=== PATIENT | female | born 1970 | race Caucasian/White ===

== ENCOUNTER 2017-03-28 20:58 | Emergency (ER) | payer BC ==
[2017-03-28 21:09] VITALS: BP 102/60
[2017-03-28] MEDS ORDERED: Penicillin VK LIQ* 250 MG/5 ML BTL PO ONE ×2 (21:43→21:47)
[2017-03-28] MEDS ORDERED: Penicillin VK TAB* 250 MG PO ONE (21:48)
--- NOTE | 2017-03-28 21:58 | UC ---
Throat Pain/Nasal Kota HPI - HPI Summary HPI Summary: pt preesents with c/o sudden onset of sore throat and NEWBERRY. that began today at 3 pm - History of Current Complaint Chief Complaint: UCGeneralIllness Stated Complaint: sore throat Time Seen by Provider: 03/28/17 21:04 Hx Obtained From: Patient Hx Last Menstrual Period: 2 wks ago ?: No Onset/Duration: Sudden Onset, Lasting Hours Severity: Mild Associated Signs & Symptoms: Positive: Dysphagia - Epiglottits Risk Factors Epiglottis Risk Factors: Sudden Onset - Allergies/Home Medications Allergies/Adverse Reactions: Allergies Allergy/AdvReac Type Severity Reaction Status Date / Time Codeine Allergy Severe Difficulty Verified 03/28/17 21:06 Breathing Home Medications: Home Medications Norethindr/Eth Estradiol(Nf) [Lo Loestrin Fe (NF)] 1 tab PO DAILY 03/28/17 [ History Confirmed 03/28/17] PMH/Surg Hx/FS Hx/Imm Hx Previously Healthy: Yes - Surgical History Surgical History: None - Family History Known Family History: Positive: Respiratory Disease - father - Social History Occupation: Employed Part-time Lives: With Family Alcohol Use: None Substance Use Type: None Smoking Status (MU): Never Smoked Tobacco Review of Systems Constitutional: Chills Skin: Negative Eyes: Negative ENT: Sore Throat Respiratory: Negative Cardiovascular: Negative Gastrointestinal: Negative Genitourinary: Negative Motor: Negative Neurovascular: Negative Musculoskeletal: Negative Neurological: Headache Psychological: Negative All Other Systems Reviewed And Are Negative: Yes Physical Exam Triage Information Reviewed: Yes Appearance: Well-Appearing Vital Signs: Initial Vital Signs Temp 99.7 F 03/28/17 21:05 Pulse 72 03/28/17 21:05 Resp 16 03/28/17 21:05 BP 102/60 03/28/17 21:05 Pulse Ox 100 03/28/17 21:05 Eye Exam: Normal ENT Exam: Other ENT: Positive: Pharyngeal erythema Neck exam: Normal Respiratory Exam: Normal Cardiovascular Exam: Normal Musculoskeletal Exam: Normal Neurological Exam: Normal Psychological Exam: Normal Skin Exam: Normal Throat Pain/Nasal Course/Dx - Differential Dx/Diagnosis Differential Diagnosis/HQI/PQRI: Pharyngitis, URI Provider Diagnoses: Strep throat Discharge - Discharge Plan Condition: Stable Disposition: HOME Prescriptions: Penicillin VK TAB 500 MG(NF) [Penicillin VK 500 mg Tab(NF)] 500 mg PO Q8H #30 tab Patient Education Materials: Strep Throat (ED) Referrals: [facility] [Outside]
== END 2017-03-28 21:57 | disposition home or self-care (01) ==
LOC: UCCORT 20:58
DX: J02.0 Streptococcal pharyngitis (principal); Z88.5 Allergy status to narcotic agent
CPT/HCPCS: 87651; 99202; A9270-GY; G0463

== ENCOUNTER 2018-02-06 10:21 | Emergency (ER) | payer BC ==
[2018-02-06 11:12] LABS: ABS Basophils 0 10^3/ul (0-0.2); ABS Eosinophils 0.1 10^3/ul (0-0.6); ABS Lymphocytes 1.2 10^3/ul (1.0-4.8); ABS Monocytes 0.4 10^3/ul (0-0.8); ABS Nucleated RBC 0 10^3/ul; Hematocrit 41 % (35-47); Hemoglobin 13.9 g/dl (12.0-16.0); Lymphocyte % 17.5 % (25-47); Mean Corpuscular HGB Conc 34 g/dl (31-36); Mean Corpuscular Hemoglobin 30 pg (27-31); Mean Corpuscular Volume 87 fL (80-97); Mean Platelet Volume 6.8 um3 (7.4-10.4); Nucleated Red Blood Cells % 0.1; Platelet Count 264 10^3/ul (150-450); Red Blood Count 4.66 10^6/ul (4.0-5.4); Red Cell Distribution Width 13 % (10.5-15); White Blood Count 6.7 10^3/ul (3.5-10.8)
[2018-02-06 11:23] LABS: INR 1.58 (0.77-1.02)
[2018-02-06] MEDS ORDERED: Iohexol 350* (CONTRAST) 500 ML MDV IV ONE (12:39)
--- NOTE | 2018-02-06 13:43 | RAD ---
INDICATION: Pain in the antecubital area and fingers tingling. History of DVT. COMPARISON: February 04, 2018 TECHNIQUE: Duplex ultrasound of the LEFT internal jugular, subclavian, axillary, brachial, radial, ulnar, basilic, and cephalic veins. With the exception of the non accessible subclavian vein compressibility of venous segments assessed. Augmentation and phasicity assessed throughout. REPORT: The deep LEFT internal jugular, subclavian and axial veins are patent. One of the paired brachial veins demonstrates occlusive thrombosis proximally and recanalization distally. Patent radial and ulnar veins. Diffuse occlusive thrombosis of the cephalic vein. The basilic vein demonstrates thick montoya most consistent with nonocclusive partial chronic thrombosis. Patency of the RIGHT internal jugular and cephalic veins documented. IMPRESSION: 1. Occlusive DVT involving the proximal segment of the paired brachial veins with distal recanalization similar to the prior exam. 2. Diffuse occlusive thrombophlebitis of the cephalic vein with interval worsening. 3. 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
[2018-02-06] MEDS ORDERED: NS 0.9% 1000 ML* 1,000 ML IV ONE (14:10)
--- NOTE | 2018-02-06 14:12 | RAD ---
INDICATION: Chest pain no upper extremity deep venous thrombosis. COMPARISON: There are no prior studies available for comparison. TECHNIQUE: A CT angiogram of the chest was performed with intravenous following intravenous injection of 61 ml of Omnipaque 350 nonionic contrast. Contiguous axial sections were obtained from the lung apices through the lung bases. Images were reconstructed in the coronal and sagittal planes. FINDINGS: There is relatively homogeneous opacification of the pulmonary arteries. No intraluminal filling defect or pulmonary embolism is seen. The heart is within normal limits in size. No pericardial effusion is present. The thoracic aorta is normal in caliber and demonstrates homogeneous contrast opacification. No significant enlarged mediastinal or hilar lymph nodes are seen. There is bilateral apical pleural and parenchymal scarring. The lungs are otherwise clear. No pleural effusion is seen. No significant focal osseous abnormality is seen. IMPRESSION: NO EVIDENCE FOR PULMONARY EMBOLISM.
--- NOTE | 2018-02-06 15:43 | RAD ---
HISTORY: Lumbar pressure after spinal tap COMPARISONS: None TECHNIQUE: The following sequences were obtained of the lumbar spine: Sagittal and axial T1- and T2-weighted images, coronal T2-weighted images, and sagittal STIR images. FINDINGS: SPINAL CORD, CONUS, AND CAUDA EQUINA: The visualized spinal cord, conus, and cauda equina are normal in caliber, position, and signal intensity. There is no epidural fluid collection to suggest epidural hematoma. ALIGNMENT: The alignment is normal. VERTEBRAL BODIES: There is a hemangioma of T11. JOINTS: There is no subluxation or dislocation. MUSCULATURE: There is mild fatty infiltration. INTERVERTEBRAL DISCS: There is loss of intervertebral disc at and T2 signal at L3-L4, L4-L5, and L5-S1. AXIAL IMAGES: L3-L4: There is no disc herniation, spinal stenosis, or neuroforaminal narrowing. L4-L5: There is mild disc bulge. There is an annular fissure extending along the right neural foramen. There is a broad-based left foraminal disc protrusion measuring 0.3 cm in depth. There is mild right neuroforaminal narrowing. There is no significant central stenosis. L5-S1: There is a mild disc bulge there is no significant neural foraminal narrowing or central canal stenosis. SOFT TISSUES: The visualized soft tissues of the abdomen are unremarkable. 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 IMPRESSION: 1. THERE IS NO EPIDURAL FLUID COLLECTION TO SUGGEST EPIDURAL HEMATOMA. 2. MILD DEGENERATIVE DISC DISEASE ALONG THE LOWER LUMBAR SPINE. THERE IS A LEFT-SIDED DISC PROTRUSION, WITH A RIGHT-SIDED ANNULAR FISSURE, AT L4-L5. THERE IS MILD RIGHT NEURAL FORAMINAL NARROWING AT L4-L5. 3. SACRAL TARLOV CYSTS
--- NOTE | 2018-02-06 16:43 | ED ---
Edwige Stewart Thomas scribed for John Burgess MD on 02/06/18 at 1113 . Complex/Multi-Sys Presentation - HPI Summary HPI Summary: The patient is a 47 year old female who 10 days ago had a severe headache and presented to an emergency department, where a CT Brain and lumbar puncture was done. She was transferred to [facility] and was admitted for two days, but there was no evidence of blood clot to her head. After being discharged from [facility], the patient had a complication from a spinal tap and was again admitted for one day. For the last few days, the patient has been complaining of subjective fevers, chills, left arm pain, and intermittent left arm numbness. The patient had a left upper extremity ultrasound obtained on 02/04/18 that showed superficial and deep venous thrombosis of the left upper extremity. The patient has been on Eliquis for the last two days. Today, she complains of a pressure sensation to the location of the lumbar puncture. She had a headache yesterday that was relieved by acetaminophen. In the emergency department, she denies headache, chest pain, shortness of breath, and vision complaints. - History Of Current Complaint Chief Complaint: EDBleedingDisorder Time Seen by Provider: 02/06/18 10:40 Hx Obtained From: Patient Onset/Duration: Still Present Timing: Constant Severity Currently: Moderate Location: Pain At: - left arm Alleviating Factor(s): None Associated Signs And Symptoms: Positive: Headache, Fever - subjective, Other - LUE numbness; NEGATIVE: vision problems. Negative: SOB, Chest Pain Related History: Recent Hospitalization - Allergies/Home Medications Allergies/Adverse Reactions: Allergies Allergy/AdvReac Type Severity Reaction Status Date / Time codeine Allergy Difficulty Verified 02/06/18 11:05 Breathing Home Medications: Home Medications Apixaban* [Eliquis*] 10 mg PO BID 02/06/18 [History Confirmed 02/06/18] PMH/Surg Hx/FS Hx/Imm Hx Sensory History: Denies: Hx Deafness Opthamlomology History: Denies: Hx Legally Blind EENT History: Denies: Hx Deafness Infectious Disease History: No Infectious Disease History: Denies: Traveled Outside the [place] in Last 30 Days - Family History Known Family History: Positive: Respiratory Disease - father - Social History Alcohol Use: None Substance Use Type: Reports: None Smoking Status (MU): Never Smoked Tobacco Review of Systems Positive: Fever - subjective, Chills Eyes: Negative - vision complaints Negative: Chest Pain Negative: Shortness Of Breath Positive: Other - Pressure to location of spinal tap, left arm pain Positive: Headache - none in ED, but some previous to arrival, Numbness - left arm All Other Systems Reviewed And Are Negative: Yes Physical Exam - Summary Physical Exam Summary: General: well-appearing, no pain distress Skin: warm, color reflects adequate perfusion, dry Head: normal Eyes: EOMI, RUSTAM ENT: normal Neck: supple, nontender Respiratory: CTA, breath sounds present Cardiovascular: RRR Abdomen: soft, nontender Bowel: present Musculoskeletal: normal, strength/ROM intact Neurological: normal, sensory/motor intact, A&O x3 Psychological: affect/mood appropriate Triage Information Reviewed: Yes Vital Signs On Initial Exam: Initial Vitals Temp Pulse Resp BP Pulse Ox 97.9 F 68 16 125/71 100 02/06/18 10:24 02/06/18 10:24 02/06/18 10:24 02/06/18 10:24 02/06/18 10:24 Vital Signs Reviewed: Yes Diagnostics - Vital Signs Vital Signs Temp Pulse Resp BP Pulse Ox 02/06/18 10:24 97.9 F 68 16 125/71 100 - Laboratory Lab Results: Lab Results 02/06/18 02/06/18 02/06/18 Range/Units 10:58 10:58 10:58 WBC 6.7 (3.5-10.8) 10^3/ul RBC 4.66 (4.0-5.4) 10^6/ul Hgb 13.9 (12.0-16.0) g/dl Hct 41 (35-47) % MCV 87 (80-97) fL MCH 30 (27-31) pg MCHC 34 (31-36) g/dl RDW 13 (10.5-15) % Plt Count 264 (150-450) 10^3/ul MPV 6.8 L (7.4-10.4) um3 Neut % (Auto) 74.8 (38-83) % Lymph % (Auto) 17.5 L (25-47) % Bradford % (Auto) 6.1 (0-7) % Eos % (Auto) 1.0 (0-6) % Baso % (Auto) 0.6 (0-2) % Absolute Neuts (auto) 5.0 (1.5-7.7) 10^3/ul Absolute Lymphs (auto) 1.2 (1.0-4.8) 10^3/ul Absolute Monos (auto) 0.4 (0-0.8) 10^3/ul Absolute Eos (auto) 0.1 (0-0.6) 10^3/ul Absolute Basos (auto) 0 (0-0.2) 10^3/ul Absolute Nucleated RBC 0 10^3/ul Nucleated RBC % 0.1 INR (Anticoag Therapy) 1.58 H (0.77-1.02) APTT 38.3 H (26.0-36.3) seconds Sodium 139 (139-145) mmol/L Potassium 3.8 (3.5-5.0) mmol/L Chloride 102 (101-111) mmol/L Carbon Dioxide 29 (22-32) mmol/L Anion Gap 8 (2-11) mmol/L BUN 14 (6-24) mg/dL Creatinine 0.85 (0.51-0.95) mg/dL Est GFR ( Amer) 92.6 (>60) Est GFR (Non-Af Amer) 72.0 (>60) BUN/Creatinine Ratio 16.5 (8-20) Glucose 88 (70-100) mg/dL Calcium 9.5 (8.6-10.3) mg/dL Total Bilirubin 0.60 (0.2-1.0) mg/dL AST 13 (13-39) U/L ALT 18 (7-52) U/L Alkaline Phosphatase 55 (34-104) U/L Troponin I 0.01 (<0.04) ng/mL C-Reactive Protein 4.15 (< 5.00) mg/L Total Protein 7.6 (6.4-8.9) g/dL Albumin 4.4 (3.2-5.2) g/dL Globulin 3.2 (2-4) g/dL Albumin/Globulin Ratio 1.4 (1-3) Beta HCG, Quant < 0.60 mIU/mL Result Diagrams: 02/06/18 10:58 02/06/18 10:58 Lab Statement: Any lab studies that have been ordered have been reviewed, and results considered in the medical decision making process. - CT CTA Chest/Thorax CT Interpretation: No Acute Changes - IMPRESSION: NO EVIDENCE FOR PULMONARY EMBOLISM. Dr. Burgess has reviewed this report. CT Interpretation Completed By: Radiologist - EKG 11:25 Cardiac Rate: NL EKG Rhythm: Sinus Rhythm - at [address] Segment: Normal EKG Interpretation: There is a PAC. - Additional Comments Diagnostic Additional Comments: VL UPPER EXT VEIN DOPPLER LEFT Interpreted by radiologist. IMPRESSION: 1. Occlusive DVT involving the proximal segment of the paired brachial veins with distal recanalization similar to the prior exam. 2. Diffuse occlusive thrombophlebitis of the cephalic vein with interval worsening. 3. 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 Dr. Burgess has reviewed this report. MRI LUMBAR SPINE W/O Interpreted by radiologist. IMPRESSION: 1. THERE IS NO EPIDURAL FLUID COLLECTION TO SUGGEST EPIDURAL HEMATOMA. 2. MILD DEGENERATIVE DISC DISEASE ALONG THE LOWER LUMBAR SPINE. THERE IS A LEFT -SIDED DISC PROTRUSION, WITH A RIGHT-SIDED ANNULAR FISSURE, AT L4-L5. THERE IS MILD RIGHT NEURAL FORAMINAL NARROWING AT L4-L5. 3. SACRAL TARLOV CYSTS Dr. Burgess has reviewed this report. Complex Multi-Symp Course/Dx Course Of Treatment: Medications reviewed. Allergies noted. DISCUSSED WITH DR SRIVASTAVA, HEMATOLOGY/ONCOLOGY. HE WILL ARRANGE FOLLOW UP WITH HIS OFFICE. DISCUSSED WITH RODRIGUEZ; HE RECOMMENDED MRI LUMBAR SPINE. PATIENT HAS NO LUMBAR RADICULOPATHY OR NEUROLOGIC DEFICIT. F/U HEME/ONC AND PMD; RETURN IF WORSE. - Diagnoses Provider Diagnoses: Deep vein thrombosis (DVT) of left upper extremity, Low back pain Discharge - Sign-Out/Discharge Documenting (check all that apply): Discharge - Discharge Plan Condition: Stable Disposition: HOME Patient Education Materials: Deep Vein Thrombosis (ED), Acute Low Back Pain (ED ) Referrals: Mila Koroma MD [Primary Care Provider] - Randal Kramer MD [Medical Doctor] - Additional Instructions: FOLLOW UP WITH DR KRAMER. CALL HIS OFFICE TOMORROW FOR FOLLOW UP WITH DR KRAMER. RETURN TO THE EMERGENCY DEPARTMENT FOR ANY WORSENING OF YOUR CONDITION; CHEST PAIN, SHORTNESS OF BREATH, YOU FEEL ILL OR QUESTIONS OR CONCERNS. - Billing Disposition and Condition Condition: STABLE Disposition: HOME Consultation - - -: I consulted with Dr. Luna, radiology, who reports that an epidural hematoma of any size should give the patient many symptoms. He reports an MRI would be a lot to do if she does not have any symptoms. I consulted with Dr. Aburto, neurosurgery, who recommends MRI. The documentation as recorded by the Edwige ceron Thomas accurately reflects the service I personally performed and the decisions made by me, John Burgess MD.
[2018-02-06 17:31] VITALS: BP 103/69
== END 2018-02-06 17:31 | disposition home or self-care (01) ==
LOC: ED 10:21
DX: I82.622 Acute embolism and thrombosis of deep veins of left upper extremity (principal); M54.5 Low back pain; Z88.5 Allergy status to narcotic agent
CPT/HCPCS: 36415; 71275; 72148; 80053; 84484; 84702; 85025; 85610; 85730; 86140; 93005; 96360; 99283; Q9967

== ENCOUNTER 2018-05-06 21:20 | Emergency (ER) | payer SELFPAY ==
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
[2018-05-06 23:37] VITALS: BP 98/67
== END 2018-05-06 23:36 | disposition home or self-care (01) ==
LOC: ED 21:20
DX: M54.9 Dorsalgia, unspecified (principal); V43.52XA Car driver injured in collision with other type car in traffic accident, initial encounter; Y92.410 Unspecified street and highway as the place of occurrence of the external cause
CPT/HCPCS: 99281